=== PATIENT | male | born 1955 | race Caucasian/White ===

== ENCOUNTER 2019-01-19 10:55 | Observation (INO) | payer OTHER ==
[~2019-01-19] VITALS: Ht 167.6 cm; Wt 81.6 kg
[2019-01-19] MEDS ORDERED: ASPIRIN 81 MG CHEW TAB PO STA (11:16)
[2019-01-19] MEDS ORDERED: ASPIRIN 81 MG CHEW TAB PO ONE (11:30)
[2019-01-19 11:31] LABS: BILIRUBIN,URINE NEGATIVE (NEGATIVE); CLARITY,URINE CLEAR (CLEAR); COLOR,URINE YELLOW (YELLOW); KETONES,URINE NEGATIVE (NEGATIVE); LEUKOCYTE ESTERASE ,URINE NEGATIVE (NEGATIVE); NITRITE,URINE NEGATIVE (NEGATIVE); PROTEIN,URINE DIPSTICK NEGATIVE (NEGATIVE); URINE UROBILINOGEN 0.2 mg/dL (0.2 - 1)
[2019-01-19 11:46] LABS: BACTERIA,URINE RARE /HPF; EPITHELIAL CELLS,URINE FEW /LPF; RBC,URINE 0-5 /HPF (0-5); WBC,URINE (MAN) 0-5 /HPF (0-5)
[2019-01-19 11:52] LABS: BASOPHILS # (AUTO) 0.1 (0.0-0.1); BASOPHILS % 0.8 % (0.0-1.0); EOSINOPHILS # (AUTO) 0.3 (0.0-0.4); EOSINOPHILS % 3.7 % (0.0-6.0); HEMATOCRIT 47.9 % (38.2-49.6); HEMOGLOBIN 16.5 g/dL (14.0-18.0); LYMPHOCYTES # (AUTO) 1.6 (1.0-3.2); LYMPHOCYTES % 22.3 % (18.0-39.1); MEAN CORPUSCULAR HEMOGLOBIN 31.5 pg (28-32); MEAN CORPUSCULAR HGB CONC 34.4 g/dL (31-35); MEAN CORPUSCULAR VOLUME 91.6 fL (81-99); MONOCYTES # (AUTO) 0.7 (0.2-0.8); MONOCYTES % 9.8 % (4.4-11.3); NEUTROPHILS # (AUTO) 4.5 (2.1-6.9); NEUTROPHILS % 62.4 % (38.7-80.0); PLATELET COUNT 243 x10e3/uL (140-360); RED BLOOD COUNT 5.23 x10e6/uL (4.3-5.7)
[2019-01-19 12:05] LABS: INR 0.92; PROTHROMBIN TIME 12.8 seconds (11.9-14.5)
[2019-01-19 12:06] LABS: PARTIAL THROMBOPLASTIN TIME 26.9 seconds (23.8-35.5)
[2019-01-19 12:14] LABS: ALANINE AMINOTRANSFERASE 30 IU/L (0-55); ALBUMIN 4.4 g/dL (3.5-5.0); ALBUMIN/GLOBULIN RATIO 1.3 (0.8-2.0); ALKALINE PHOSPHATASE 46 IU/L (40-150); ANION GAP 12.6 mmol/L (8-16); BLOOD UREA NITROGEN 28 mg/dL (7-26); BUN/CREATININE RATIO 20 (6-25); CALCIUM 10.5 mg/dL (8.4-10.2); CARBON DIOXIDE 28 mmol/L (22-29); CHLORIDE 103 mmol/L (98-107); CREATINE KINASE 283 IU/L (30-200); CREATININE, SERUM 1.42 mg/dL (0.72-1.25); EST GLOMERULAR FILTRATION RATE 50 ML/MIN (60-); GLUCOSE 96 mg/dL (74-118); POTASSIUM 4.6 mmol/L (3.5-5.1); SODIUM 139 mmol/L (136-145)
[2019-01-19] MEDS ORDERED: NITROGLYCERIN 2% OINT 1 GM PKT TOP ONE (12:15)
--- NOTE | 2019-01-19 12:31 | Diagnostic Imaging Report ---
EXAMINATION: CHEST SINGLE (NOT PORTABLE) INDICATION: Chest pain COMPARISON: None FINDINGS: LINES/TUBES:None LUNGS:The lungs are well-inflated. No focal consolidation or pulmonary edema. A 5 mm nodular opacity overlying the left midlung zone may represent a pulmonary nodule. PLEURA:No pleural effusion or pneumothorax. MEDIASTINUM:The cardiomediastinal silhouette appears normal in size and shape. BONES/SOFT TISSUES:No acute osseous injury. ABDOMEN:No free air under the diaphragm. IMPRESSION: No focal pneumonia or pulmonary edema. 5 mm nodule overlying the left midlung zone may represent a pulmonary nodule. Further evaluation with chest CT on a nonurgent basis is recommended. Signed by: Ashutosh Reinoso MD on 01/19/2019 12:28 PM
[2019-01-19] MEDS ORDERED: NITROGLYCERIN 0.4 MG SUBL SL PRN (13:15)
[2019-01-19] MEDS ORDERED: MORPHINE SULFATE 2 MG/ML SYR 1ML IV PRN (13:15)
[2019-01-19] MEDS ORDERED: ONDANSETRON HCL INJ 2MG/ML 2ML 2 MG/ML VIAL IV PRN (13:15)
--- OUTSIDE RECORDS SUMMARY | 2019-01-19 13:29 | XMS REPORT ---
Author Author [facility] Address Unknown Phone Unavailable Care Team Providers Care Chemistry Technician Name Role Phone Merrill VINCENT Unavailable Unavailable Problems This patient has no known problems. Allergies, Adverse Reactions, Alerts This patient has no known allergies or adverse reactions. Medications This patient has no known medications. Results Test Description Test Time Test Comments Text Results Atomic Results Result Comments CHEST SINGLE (NOT PORTABLE) 2019-01-19 12:25:00 [place] [id number] Patient Name: LORI FONTANEZ MR #: [id number] : 1955 Age/Sex: 63/M Req #: [id number] Adm Physician: Ordered by: JEN MCINTOSH NP Report #: [id number] Location: ER Room/Bed: Procedure: [id number] DX/CHEST SINGLE (NOT PORTABLE) Exam Date: 01/19/19 Exam Time: 1200 REPORT STATUS: Signed EXAMINATION: CHEST SINGLE (NOT PORTABLE) INDICATION: Chest pain COMPARISON: None FINDINGS: LINES/TUBES:None LUNGS:The lungs are well-inflated. No focal consolidation or pulmonary edema. A 5 mm nodular opacity overlying the left midlung zone may represent a pulmonary nodule. PLEURA:No pleural effusion or pneumothorax. MEDIASTINUM:The cardiomediastinal silhouette appears normal in size and shape. BONES/SOFT TISSUES:No acute osseous injury. ABDOMEN:No free air under the diaphragm. IMPRESSION: No focal pneumonia or pulmonary edema. 5 mm nodule overlying the left midlung zone may represent a pulmonary nodule. Further evaluation with chest CT on a nonurgent basis is recommended. Signed by: Robby Delgado MD on 01/19/2019 12:28 PM Dictated By: ROBBY DELGADO MD [id number] Transcribed By: SHIRLEY on 01/19/19 1228 COPY TO: JEN MCINTOSH NP
[2019-01-19] MEDS ORDERED: FAMOTIDINE 20 MG/2 ML VIAL IV SCH (14:30)
[2019-01-19] MEDS ORDERED: ACETAMINOPHEN325 M1 PO (17:57)
--- NOTE | 2019-01-19 17:57 | NUR ---
dr. som hebert called for re-newal of home meds
[2019-01-19] MEDS: NITROGLYCERIN 2% OINT 1 GM PKT TOP SCH (18:00)
[2019-01-19] MEDS ORDERED: ASPIRIN EC81 MG PO (18:08)
[2019-01-19] MEDS ORDERED: DICLOFENAC SODI75 MG (18:08)
[2019-01-19] MEDS ORDERED: FENOFIBRATE134 MG (18:08)
[2019-01-19] MEDS ORDERED: SIMVASTATIN80 MG (18:08)
[2019-01-19] MEDS ORDERED: METOPROLOL TART50 MG (18:08)
--- NOTE | 2019-01-19 18:09 | NUR ---
home meds obtained from pt. and entered into the computer
[2019-01-19] MEDS ORDERED: ACETAMINOPHEN 325 MG TAB ONE (18:41)
[2019-01-19 19:39] LABS: CREATINE KINASE MB 3.1 ng/mL (0-5.0)
--- NOTE | 2019-01-19 20:43 | NUR ---
RECEIVED PATIENT FROM THE EMERGENCY ROOM VIA STRETCHER. PATIENT IS ALERT AND RESPONSIVE. NO COMPLAINT AT THIS TIME. TELEMETRY MONITORING CONTINUE. ORIENTED PATIENT TO ROOM. CALL LIGHT WITHIN REACHED.
[2019-01-19 20:58] VITALS: BP 203/97
[2019-01-19 21:14] VITALS: BP 137/87
[2019-01-19 21:45] VITALS: BP 137/87
[2019-01-19 21:50] VITALS: BP 137/87
[2019-01-19 23:47] VITALS: BP 161/94
[2019-01-20] VITALS (8 sets, daily range): BP systolic 122–145; BP diastolic 66–88
[2019-01-20] MEDS: NITROGLYCERIN 2% OINT 1 GM PKT TOP SCH ×4 (00:01→16:19)
[2019-01-20 01:06] LABS: CREATINE KINASE MB 3.2 ng/mL (0-5.0)
[2019-01-20] MEDS: FAMOTIDINE 20 MG/2 ML VIAL IV SCH ×2 (01:55→13:08)
[2019-01-20 05:23] LABS: BASOPHILS # (AUTO) 0.1 (0.0-0.1); BASOPHILS % 1.1 % (0.0-1.0); EOSINOPHILS # (AUTO) 0.3 (0.0-0.4); EOSINOPHILS % 4.2 % (0.0-6.0); HEMATOCRIT 43.7 % (38.2-49.6); LYMPHOCYTES # (AUTO) 1.4 (1.0-3.2); MEAN CORPUSCULAR HEMOGLOBIN 31.4 pg (28-32); MEAN CORPUSCULAR HGB CONC 34.3 g/dL (31-35); MEAN CORPUSCULAR VOLUME 91.4 fL (81-99); MONOCYTES # (AUTO) 0.8 (0.2-0.8); MONOCYTES % 11.5 % (4.4-11.3); NEUTROPHILS # (AUTO) 3.9 (2.1-6.9); NEUTROPHILS % 60.6 % (38.7-80.0); PLATELET COUNT 193 x10e3/uL (140-360); RED BLOOD COUNT 4.78 x10e6/uL (4.3-5.7); RED CELL DISTRIBUTION WIDTH 13.1 % (11.7-14.4)
[2019-01-20 05:47] LABS: CREATINE KINASE MB 2.9 ng/mL (0-5.0)
[2019-01-20 06:02] LABS: ALBUMIN 3.7 g/dL (3.5-5.0); ALBUMIN/GLOBULIN RATIO 1.3 (0.8-2.0); ANION GAP 13.1 mmol/L (8-16); CALCIUM 9.1 mg/dL (8.4-10.2); CHOL/HDL RATIO 5.9 (3.9-4.7); CREATININE, SERUM 1.23 mg/dL (0.72-1.25); POTASSIUM 4.1 mmol/L (3.5-5.1)
--- NOTE | 2019-01-20 07:08 | NUR ---
PT AWAKE, RESP EVEN AND UNLABORED AT THIS TIME, NO DISTRESS NOTED, PT ABLE TO MAKE NEEDS KNOWN, NO C/O PAIN WHEN ASKED, CALL LIGHT IN REACH.
[2019-01-20] MEDS: ASPIRIN 81 MG ENTERIC COATED PO SCH (08:11)
[2019-01-20] MEDS ORDERED: NON-FORMULARY MEDICATION (Diclofenac Sodium 75 MG) SCH (09:00)
[2019-01-20] MEDS ORDERED: ASPIRIN 81 MG ENTERIC COATED PO SCH (09:00)
[2019-01-20] MEDS ORDERED: NON-FORMULARY MEDICATION (Fenofibrate,Micronized (Fenofibrate) 134 MG) SCH (09:00)
[2019-01-20] MEDS ORDERED: ACETAMINOPHEN 325 MG TAB PO PRN (09:00)
[2019-01-20] MEDS: METOPROLOL TARTRATE 50 MG TAB PO SCH ×2 (09:00→16:20)
[2019-01-20] MEDS: LORATADINE 10 MG TAB PO SCH (09:47)
[2019-01-20] MEDS ORDERED: ACETAMIN/BUTALBITAL/CAFFEINE TAB PO PRN (10:30)
--- NOTE | 2019-01-20 11:25 | NUR ---
PT TRANSFERRED TO OBS. 175, DR LAUREANO NOTIFIED, REPORT TO TIERNEY LEE.
[2019-01-20] MEDS: SODIUM CHLORIDE 0.9% 1000ML 1,000 ML IV SCH ×2 (12:00→21:03)
[2019-01-20] MEDS ORDERED: ONDANSETRON HCL 4 MG ORAL DISINTEGRATING TAB PO PRN (12:00)
[2019-01-20] MEDS ORDERED: CLOPIDOGREL BISULFATE 75 MG TAB PO ONE (12:30)
[2019-01-20] MEDS: DICLOFENAC SOD 50 MG TAB PO SCH ×2 (13:18→16:19)
[2019-01-20] MEDS ORDERED: HEPARIN SOD/SOD CHLORIDE 2,000 ML ONE (17:07)
[2019-01-20] MEDS ORDERED: LIDOCAINE HCL 2% LOCAL 20 ML VIAL ONE (17:07)
[2019-01-20] MEDS ORDERED: IOPAMIDOL 370 MG/ML 200 ML INFUS..BTL INJ ONE (17:08)
[2019-01-20] MEDS ORDERED: SODIUM CHLORIDE 0.9% 1000ML 1,000 ML ONE (17:08)
[2019-01-20] MEDS ORDERED: MIDAZOLAM HCL 2 MG/2 ML VIAL ONE (17:08)
[2019-01-20] MEDS ORDERED: FENTANYL CITRATE/PF 100MCG/2 ML INJ ONE (17:09)
--- NOTE | 2019-01-20 17:19 | NUR ---
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
--- NOTE | 2019-01-20 18:10 | Consultation ---
DATE OF CONSULTATION: Cardiac Consultation REASON FOR CONSULTATION: Unstable coronary syndrome. HISTORY OF PRESENT ILLNESS: A 63-year-old gentleman, who is known with hypertension and hyperlipidemia. The patient was in his usual status of health. A week ago, he had severe retrosternal chest pain radiating to his back, very very very typical. Yesterday, while working and doing physical activity at work, he had another prolonged episode of severe retrosternal chest pain radiating to his back associated with diaphoresis. The patient came to the emergency room and admitted for further management. Cardiac enzymes are normal. Cardiac consultation obtained. I visited with the patient, who is now pain-free. He does have typical symptoms of unstable coronary syndrome, pending myocardial infarction, location, severity, radiation to the neck and to the back. There is no orthopnea. No paroxysmal nocturnal dyspnea. There is no syncope or presyncope. REVIEW OF SYSTEMS: CARDIAC: As per above. PULMONARY: No cough. No hemoptysis. GI: No hematemesis. No melena. : No hematuria. No dysuria. MUSCULOSKELETAL: Aches and pain. GENERAL: No fever. No chills. SOCIAL HISTORY: The patient is . He is nonsmoker. He drinks beer every now and then. He works in [employer]. HOME MEDICATIONS: Fenofibrate 130 mg a day, Lopressor 50 mg twice a day, aspirin 81 mg a day, and diclofenac p.r.n. ALLERGIES: NONE. PAST MEDICAL HISTORY: 1. Hypertension. 2. Hyperlipidemia. 3. Allergies and sinuses. 4. Right and left carpal tunnel surgeries. 5. Circumcision. FAMILY HISTORY: Father of car crash at age 67. Mother doing well at age 83. He had 4 brothers. He lost 2 of them due to brain cancer. Another brother at young age 61 with complication of congestive heart failure. Four healthy sisters, 3 healthy daughter. No sons. PHYSICAL EXAMINATION: VITAL SIGNS: Height of 5 feet 6 inches, weight of 180 pounds, blood pressure 130/80, heart rate of 60, and respiratory rate of 18. HEENT: Pupils are equal and reactive. NECK: No elevation of jugular venous pulsation. No bruit. CHEST: Clear to auscultation and percussion. HEART: PMI 5th left intercostal space. Normal first and second heart sound. ABDOMEN: Soft. Good bowel sounds. No organomegaly. No abdominal bruits. EXTREMITIES: No cyanosis. No clubbing. No edema. LABORATORY DATA: BUN and creatinine are elevated at 29 and 1.3. White blood cell count of 6.5, hemoglobin 15, hematocrit 43%, and platelet count of 193,000. BNP of 21. Triglycerides of 200, cholesterol of 164, HDL of 28, and LDL of 98. EKG is normal sinus rhythm, left anterior fascicular block, and right bundle branch block, ST-T changes. IMPRESSION AND PLAN: 1. Acute coronary artery syndrome. 2. Hypertension. 3. Hyperlipidemia. Options of workup are discussed. The patient is scheduled for cardiac catheterization with possible intervention. We will keep him on beta-tati and statin. We will start Plavix. The patient will be scheduled for cardiac catheterization with possible intervention. Procedure risks, benefits, and alternatives are discussed and explained. MD KATLIN Prakash/MODL /[id number]
--- NOTE | 2019-01-20 18:40 | NUR ---
Report provided to Faustino MONET, review of procedural findings and medications given. Patient drowsy, easily aroused. maintains airway and room air saturations of 98-99%. No gross issues of pressure, pain, pallor or dysrhythmia. IV site patent with NS 0.9% at KVO by gravity . patient hemodynamically stable with hemostasis right groin dressing CDI w/o s/s of bleeding. patient transferred to [facility] w/o incident. transported to room 175 on monitor - cgf procedure: Diagnostic LHC and coronary angiography Sheath puller: Malick RTfabio 15 minute hold to right groin Meds Given Intra-Procedure Sedatives Versed - 2 mg Fentanyl - 50 mcg Fluids Input - 250 ml Output - dtv Contrast Isovue 370 - 85 ml
--- NOTE | 2019-01-20 18:55 | NUR ---
Walking rounds done. Patient is on flat bedrest until 2230 per MD. Right groin dressing intact, no hematoma palpated, and +pedal pulses. at bedside. POC discussed. Patient is awake, alert, and able to make needs known. Call wong within reach.
--- NOTE | 2019-01-20 19:15 | NUR ---
Dr. Dawson at the bedside assessing site. No new orders.
--- NOTE | 2019-01-20 20:30 | NUR ---
Right groin cath site remains intact, soft and no bleeding. +pedal pulses.
[2019-01-20] MEDS ORDERED: SIMVASTATIN 80 MG TAB PO SCH (21:00)
--- NOTE | 2019-01-20 22:30 | NUR ---
Bedrest is complete. Patient is sleeping, easily arouses, without any complaints voiced. Right groin cath site intact, no hematoma palpated or bleeding. +pedal pulses.
[2019-01-21] VITALS: BP 149/77
[2019-01-21] MEDS: FAMOTIDINE 20 MG/2 ML VIAL IV SCH (01:16)
--- NOTE | 2019-01-21 02:17 | Operative Report ---
DATE OF PROCEDURE: 01/20/2019 SURGEON: Melva Dawson MD TITLE OF PROCEDURE: Left cardiac catheterization. INDICATION: Acute coronary syndrome in hypertensive and hypercholesterolemic patient. TECHNICAL DETAILS: After the usual sterile preparation and draping procedure, intravenous Versed and fentanyl given for anesthesia and xylocaine for local anesthesia. A 4-[place] sheath was established in place, [place] left 4 and 3DRC catheter to engage the coronary pigtail for hemodynamic measurement and left ventriculogram. At the end of the procedure, sheath was removed, hemostasis achieved manually, no complication, no blood loss. RESULTS: A. Coronary angiogram. 1. Short left main. 2. LAD minimal plaquing at 30%. 3. Circumflex coronary artery, minimal plaquing. 4. Right coronary artery and 30% proximal lesion. a. Hemodynamic aorta pressure 130/80, LV pressure 130/18. b. Left ventriculogram: The right anterior oblique view showed normal size ventricle with normal left ventricular ejection fraction. IMPRESSION: 1. Mild CAD. 2. Dominant right coronary artery. 3. Preserved left ventricular systolic function. PLAN: Medical therapy. COMPLICATION: None. BLOOD LOSS: None. Melva Dawson MD MOJ/MODL /[id number]
[2019-01-21 03:53] VITALS: BP 124/71
--- NOTE | 2019-01-21 07:00 | NUR ---
Walking rounds and report given to oncoming nurse. Call wong within reach.
[2019-01-21 07:29] VITALS: BP 165/81
[2019-01-21] MEDS ORDERED: CLOPIDOGREL BISULFATE 75 MG TAB PO SCH (09:00)
[2019-01-21] MEDS: METOPROLOL TARTRATE 50 MG TAB PO SCH (09:17)
[2019-01-21] MEDS: DICLOFENAC SOD 50 MG TAB PO SCH (09:18)
[2019-01-21] MEDS: LORATADINE 10 MG TAB PO SCH (09:18)
[2019-01-21] MEDS: ASPIRIN 81 MG ENTERIC COATED PO SCH (09:18)
[2019-01-21] MEDS: SODIUM CHLORIDE 0.9% 1000ML 1,000 ML IV SCH (09:19)
[2019-01-21 09:30] VITALS: BP 165/81
[2019-01-21] MEDS ORDERED: INFLUENZA VIRUS VAC SPLIT INJ 0.5 ML SYR IM SCH (10:00)
[2019-01-21 11:21] VITALS: BP 186/99
[2019-01-21] MEDS ORDERED: FAMOTIDINE 20 MG TAB PO SCH (14:00)
== END 2019-01-21 13:05 | disposition home or self-care (01) ==
LOC: ER 10:55 → ERHOLD 13:28 → MED/SURG 20:43 → IMCU 01-20 11:31
DX: I25.10 Atherosclerotic heart disease of native coronary artery without angina pectoris (principal); R68.84 Jaw pain; I10 Essential (primary) hypertension; Z82.49 Family history of ischemic heart disease and other diseases of the circulatory system; E78.5 Hyperlipidemia, unspecified
CPT/HCPCS: 36415 ×2; 71045; 80053 ×2; 80061; 81001; 82550 ×2; 82553 ×2; 83880; 84484 ×2; 85025 ×2; 85610; 85730; 93005; 93306; 93458; 99284; C1766; G0378 ×3; J2001; J2250; J2270; J3010; J7030 ×2; Q9967